=== PATIENT | female | born 1940 | race Caucasian/White ===

== ENCOUNTER 2017-12-02 19:36 | Observation (INO) | payer MEDICARE, OTHER ==
[~2017-12-02] VITALS: Ht 152.4 cm; Wt 69.2 kg
[~2017-12-02 19:36] MED LIST: ASPIRIN E.C. 8181 MG PO; CEFTIN 250250 MG/TAB PO; CELEXA 20MG20 MG/TAB PO; CELEXA40 MG PO; GLUCOPHAGE1000 MG PO; GLUCOPHAGE500 MG/TAB PO; GLUCOTROL 5M5 MG/TAB PO; LOTENSIN20 MG PO; NORCO 325 MG-51 TAB PO; SENOKOT S 50 MG1 TAB PO; XARELTO10 MG PO
[2017-12-02 20:08] LABS: BASO # 0.1 (0.0-0.2); BASO % 0.8 % (0.0-2.0); EOS # 0.3 (0.0-0.7); EOS % 3.6 % (0-4.0); GRAN # 4.7 (1.4-6.5); GRAN % 55.4 % (42.2-75.2); HEMOGLOBIN 11.5 g/dl (12.5-16.0); LYMPH # 2.7 (1.2-3.4); LYMPH % 32.2 % (20.0-51.0); MEAN CELL VOLUME 82 fl (80.0-100.0); MEAN CORPUSCULAR HEMOGLOBIN 27 pg (27.0-31.0); MEAN CORPUSCULAR HGB CONC 33 g/dl (33.0-37.0); MEAN PLATELET VOLUME 9.1 fl (7.4-10.4); MONO # 0.6 (0.1-0.6); MONO % 7.5 % (1.7-9.3); PLATELET COUNT 251 K/mm3 (130-400); RED BLOOD COUNT 4.26 M/mm3 (4.10-5.30); REDCELL DISTRIBUTION WIDTH-CV 14.3 % (11.5-14.5)
[2017-12-02 20:10] LABS: HEMATOCRIT 35.1 % (37.0-47.0)
[2017-12-02 20:23] LABS: ALANINE AMINOTRANSFERASE 22 U/L (9-52); ALBUMIN 4.1 gm/dL (3.5-5.0); ALKALINE PHOSPHATASE 78 U/L (50-136); ANION GAP 11 mmol/L (7-16); AST,SGOT 21 U/L (15-37); BILIRUBIN,TOTAL 0.2 mg/dL (0.0-1.0); BLOOD UREA NITROGEN 17 mg/dL (7-17); C-REACTIVE PROTEIN 1.6 mg/dL (0.0-0.9); CALCIUM 9.3 mg/dL (8.4-10.2); CARBON DIOXIDE 28 mmol/L (22-30); CREATININE, serum 0.77 mg/dL (0.52-1.25); GLUCOSE 97 mg/dL (74-106); POTASSIUM 4.1 mmol/L (3.4-5.0); SODIUM 127 mmol/L (137-145); TOTAL PROTEIN 7.4 gm/dL (6.4-8.2)
[2017-12-02 20:28] LABS: ERYTHROCYTE SEDIMENTATION RATE 22 mm/hr (0-30)
[2017-12-02 20:34] LABS: TROPONIN-I < 0.012 ng/mL (0.000-0.034)
[2017-12-02 20:35] LABS: CHLORIDE 89 mmol/L (98-107)
[2017-12-02 20:46] LABS: COLLECTION METHOD CLEAN CATCH
[2017-12-02 20:56] LABS: PH 6 (5-8); URINE APPEARANCE Clear; URINE BACTERIA Rare /hpf; URINE BILIRUBIN Negative (NEGATIVE); URINE BLOOD Negative (NEGATIVE); URINE COLOR Yellow; URINE GLUCOSE Negative (NEGATIVE); URINE KETONE Negative (NEGATIVE); URINE LEUKOCYTE ESTERASE Negative (NEGATIVE); URINE NITRATE Negative (NEGATIVE); URINE PROTEIN(semi-quant) Negative (NEGATIVE); URINE RBC 0-2 /hpf; URINE UROBILINOGEN Negative (NEGATIVE)
[2017-12-02] MEDS ORDERED: LAMICTAL 25MG T25 MG PO (21:23)
[2017-12-02 23:25] VITALS: BP 114/74; PULSE 58; TEMP 97.6
[2017-12-03 04:00] VITALS: BP 112/60; PULSE 57; TEMP 97.7
[2017-12-03 07:50] VITALS: BP 120/58; PULSE 72; TEMP 98.4
[2017-12-03 11:32] VITALS: BP 103/60; PULSE 60; TEMP 97.8
[2017-12-03] MEDS ORDERED: COLACE 100100 MG/CAP PO (12:27)
[2017-12-03] MEDS ORDERED: LIPITOR20 MG PO (13:31)
[2017-12-03] MEDS ORDERED: ASPIRIN E.C. 8181 MG PO (13:32)
[2017-12-03] MEDS ORDERED: NAPROSYN 2250 MG/TAB PO (13:32)
[2017-12-03] MEDS ORDERED: LOTENSIN HCT 101 TAB PO (15:21)
[2017-12-03] MEDS ORDERED: DESYREL DIVIDO150 M1 PO (15:21)
[2017-12-03] MEDS ORDERED: PROZAC40 MG PO (15:21)
[2017-12-03] MEDS ORDERED: KLONOPIN 0.5MG0.5 MG PO (15:22)
== END 2017-12-03 15:55 | disposition home or self-care (01) ==
LOC: COL.ER 19:36 → MEDICAL 21:11
PROVIDERS: Emergency Medicine
DX: R51 Headache (principal); G62.9 Polyneuropathy, unspecified; E87.1 Hypo-osmolality and hyponatremia; E11.40 Type 2 diabetes mellitus with diabetic neuropathy, unspecified; F32.9 Major depressive disorder, single episode, unspecified; I50.9 Heart failure, unspecified; I11.0 Hypertensive heart disease with heart failure; F17.210 Nicotine dependence, cigarettes, uncomplicated; Z79.1 Long term (current) use of non-steroidal anti-inflammatories (NSAID); Z79.84 Long term (current) use of oral hypoglycemic drugs; Z79.82 Long term (current) use of aspirin; Z85.42 Personal history of malignant neoplasm of other parts of uterus; Z90.49 Acquired absence of other specified parts of digestive tract; Z90.5 Acquired absence of kidney; Z90.710 Acquired absence of both cervix and uterus
CPT/HCPCS: 99222-AI; G0378; J2405; J3010; J7030